=== PATIENT | male | born 1975 | race Two or more races ===

== ENCOUNTER → 2016-09-20 | Outpatient (CLI) | payer OTHER ==
[~2016-09-20] MED LIST: ANTIVERT25 MG ORAL; AUGMENTIN 875-1 EAC1 ORAL; ZOFRAN ODT4 MG ORAL
--- NOTE | 2016-09-22 11:00 | Diagnostic Imaging Report ---
Indication: Knee pain Technique: MRI of the left knee was imaged in a 1.5 Eliana magnet. Pulse sequences obtained include coronal T1 fast spin-echo, STIR, sagittal coronal and axial proton fast spin-echo with fat saturation, sagittal proton fast spin-echo. Comparison: None Findings: Bone marrow signal and alignment appear normal. Articular cartilage is well preserved. Anterior and posterior cruciate ligaments appear normal. The menisci appear normal. Patellofemoral compartment and extensor tendon mechanism is unremarkable. There is no joint effusion. Medial collateral ligament is normal. Lateral collateral ligament and supporting structures are unremarkable. Impression: Negative MRI of the left knee
== END | disposition home or self-care (01) ==
LOC: MRI 14:28
DX: S83.209A Unspecified tear of unspecified meniscus, current injury, unspecified knee, initial encounter (principal); X58.XXXA Exposure to other specified factors, initial encounter; Y92.9 Unspecified place or not applicable